=== PATIENT | male | born 2000 | race Caucasian/White ===

== ENCOUNTER 2021-10-01 21:29 | Emergency (ER) | payer MEDICAID ==
[~2021-10-01] VITALS: Ht 165.1 cm; Wt 64.0 kg
[2021-10-01 21:32] VITALS: BP 140/86
[2021-10-01] MEDS ORDERED: KETOROLAC 30MG/ML VIAL IM STA (22:41)
[2021-10-01] MEDS ORDERED: ONDANSETRON 4MG ODT PO STA (22:41)
[2021-10-01 23:39] LABS: BASOPHILS % 0.3 % (0.0-2.0); EOSINOPHILS % 0.2 % (0.0-5.0); HEMATOCRIT. 43.4 % (42.0-52.0); HEMOGLOBIN. 14.2 g/dL (14.0-18.0); LYMPHOCYTES % 10.1 % (20.0-50.0); MEAN CORPUSCULAR HEMOGLOBIN 29.4 pg (28.0-32.0); MEAN CORPUSCULAR VOLUME 89.8 fL (80.0-94.0); MEAN PLATELET VOLUME 9.5 fl (7.4-10.4); MONOCYTES % 4.6 % (2.0-8.0); NEUTROPHILS % 84.8 % (40.0-76.0); PLATELET 235 x1000/uL (130-400); RED BLOOD CELL COUNT 4.84 mill/uL (4.7-6.1); RED CELL DISTRIBUTION WIDTH 13.4 % (11.6-14.6)
[2021-10-02] LABS: CHLORIDE 104 mEq/L (98-107)
[2021-10-02 00:58] LABS: CLARITY URINE CLEAR (CLEAR); COLOR URINE YELLOW (YELLOW); KETONES URINE TRACE (NEGATIVE); LEUKOCYTE ESTERASE URINE NEGATIVE (NEGATIVE); NITRITE URINE NEGATIVE (NEGATIVE); OCCULT BLOOD URINE NEGATIVE (NEGATIVE); PROTEIN URINE 1+ (NEGATIVE); SPECIFIC GRAVITY URINE 1.023 (1.005-1.030)
[2021-10-02] MEDS ORDERED: FAMO-135 MT (01:52)
[2021-10-02] MEDS ORDERED: ACET-2708 MT (01:52)
== END 2021-10-02 02:04 | disposition home or self-care (01) ==
LOC: ER 21:29
DX: K80.20 Calculus of gallbladder without cholecystitis without obstruction (principal)
CPT/HCPCS: 36415; 76705; 80053; 81003; 83690; 85025; 96372; 99284; J1885; Q0162

== ENCOUNTER 2021-10-19 07:59 | Emergency (ER) | payer MEDICAID, OTHER ==
[~2021-10-19] VITALS: Ht 165.1 cm; Wt 60.0 kg
[~2021-10-19 07:59] MED LIST: ACET-2708 MT; FAMO-135 MT
[2021-10-19 08:08] VITALS: BP 116/69
[2021-10-19] MEDS ORDERED: IBUPROFEN 400MG TABLET PO ONE (08:30)
[2021-10-19] MEDS ORDERED: IBUP-2028 MT (09:13)
== END 2021-10-19 10:04 | disposition home or self-care (01) ==
LOC: ER 07:59
DX: S83.8X2A Sprain of other specified parts of left knee, initial encounter (principal); M25.572 Pain in left ankle and joints of left foot; W01.198A Fall on same level from slipping, tripping and stumbling with subsequent striking against other object, initial encounter; Y93.89 Activity, other specified; Y92.814 Boat as the place of occurrence of the external cause; Y99.0 Civilian activity done for income or pay
CPT/HCPCS: 73562; 99283